=== PATIENT | female | born 1960 | race Caucasian/White ===

== ENCOUNTER 2019-02-19 07:45 | Inpatient (IN) | payer OTHER ==
[~2019-02-19] VITALS: Ht 160 cm; Wt 70.3 kg
== END 2019-03-02 10:19 | disposition home or self-care (01) | DRG 743 ==
LOC: ADM 07:45 → SURH 02-27 07:00 → O/R 02-27 07:37 → OB/GYN 02-27 07:37 → EDSTATUS 02-27 07:45 → CIR.AMB 02-27 07:45 → SURH 02-27 07:45 → OB/GYN 02-27 19:56 → SEC-K 02-27 22:20 → OB/GYN 02-27 22:21
PROVIDERS: ADMIT Obstetrics & Gynecology
PROC: 0UT70ZZ Resection of Bilateral Fallopian Tubes, Open Approach (ICD-10-PCS; 2019-02-27)
PROC: 0UT90ZZ Resection of Uterus, Open Approach (ICD-10-PCS; principal; 2019-02-27 07:00)
DX: N80.0 Endometriosis of uterus (principal); N95.0 Postmenopausal bleeding; N84.0 Polyp of corpus uteri